=== PATIENT | male | born 1985 | race Caucasian/White ===

== ENCOUNTER 2016-07-15 07:40 | Outpatient (CLI) | payer OTHER ==
[2016-07-15 08:31] LABS: BASOPHILS # (AUTO) 0.1 K/uL (0.0-0.2); BASOPHILS % (AUTO) 1.1 % (0.0-2.0); EOSINOPHILS # (AUTO) 0.4 K/uL (0.0-0.4); EOSINOPHILS % (AUTO) 5.8 % (0.0-4.0); HEMATOCRIT 48.3 % (36-54); HEMOGLOBIN 16.1 g/dL (14.0-18.0); LYMPHOCYTES # (AUTO) 2.6 K/uL (1.0-5.5); MEAN CORPUSCULAR HEMOGLOBIN 29 pg (27-31); MEAN CORPUSCULAR HGB CONC 33 % (32-36); MEAN CORPUSCULAR VOLUME 88 fL (79.0-98.0); MONOCYTES # (AUTO) 0.8 K/uL (0.0-1.0); MONOCYTES % (AUTO) 10.6 % (1.7-9.3); NEUTROPHILS # (AUTO) 3.4 K/uL (1.8-7.7); NEUTROPHILS % (AUTO) 47.5 % (40.0-70.0); PLATELET COUNT (AUTO) 183 K/uL (130-430); RED CELL DISTRIBUTION WIDTH 12.1 % (9.0-15.0); WHITE BLOOD COUNT (AUTO) 7.3 K/uL (4.8-10.8)
[2016-07-15] MEDS ORDERED: BARIUM SULFATE 135 ML SUSP.RECON (E-Z-HD) PO ONE (08:38)
[2016-07-15 08:52] LABS: ALBUMIN 4.7 g/dL (3.4-4.8); CREATININE 1.14 mg/dL (0.55-1.30); FREE T4 (FREE THYROXINE) 1.2 ng/dL (0.6-1.6); POTASSIUM 3.6 mmol/L (3.5-5.1); THYROID STIMULATING HORMONE 1.42 uIu/mL (0.34-4.82); TOTAL BILIRUBIN 0.6 mg/dL (0.0-1.0); TOTAL PROTEIN, SERUM 7.6 g/dL (6.4-8.3)
[2016-07-15 09:46] LABS: ERYTHROCYTE SEDIMENTATION RATE 2 MM/HR (0-15)
[2016-07-16 12:20] LABS: HEMOGLOBIN A1C 5.4 % (4.8-5.6)
== END 2016-07-15 19:43 | disposition home or self-care (01) ==
LOC: SLB 07:40
PROVIDERS: ATTEND Internal Medicine
DX: K21.9 Gastro-esophageal reflux disease without esophagitis (principal); R07.9 Chest pain, unspecified; R13.10 Dysphagia, unspecified; E04.9 Nontoxic goiter, unspecified
CPT/HCPCS: 36415; 71020-TC; 74220-TC; 76536-TC; 80053; 80061; 82306; 82607; 83036; 83735-TC; 84439; 84443-TC; 85025; 85651-TC

== ENCOUNTER 2016-07-17 12:40 | Outpatient (CLI) | payer OTHER | END 2016-07-17 19:02 | disposition home or self-care (01) | LOC: SCA 12:40 | PROVIDERS: ATTEND Internal Medicine | DX: I49.9 Cardiac arrhythmia, unspecified (principal) | CPT/HCPCS: 93005; 93306 ==

== ENCOUNTER → 2016-12-17 | Outpatient (CLI) | payer OTHER ==
[2016-12-17 08:50] LABS: BASOPHILS # (AUTO) 0.1 K/uL (0.0-0.2); BASOPHILS % (AUTO) 0.7 % (0.0-2.0); EOSINOPHILS # (AUTO) 0.2 K/uL (0.0-0.4); EOSINOPHILS % (AUTO) 2.8 % (0.0-4.0); HEMATOCRIT 46.4 % (36-54); HEMOGLOBIN 15.4 g/dL (14.0-18.0); LYMPHOCYTES # (AUTO) 2.2 K/uL (1.0-5.5); LYMPHOCYTES % (AUTO) 30.3 % (20.5-51.5); MEAN CORPUSCULAR HEMOGLOBIN 29 pg (27-31); MEAN CORPUSCULAR HGB CONC 33 % (32-36); MEAN CORPUSCULAR VOLUME 87 fL (79.0-98.0); MONOCYTES # (AUTO) 0.6 K/uL (0.0-1.0); MONOCYTES % (AUTO) 8.2 % (1.7-9.3); NEUTROPHILS # (AUTO) 4.1 K/uL (1.8-7.7); PLATELET COUNT (AUTO) 207 K/uL (130-430); RED BLOOD CELL COUNT(AUTO) 5.31 MIL/uL (4.2-6.2); RED CELL DISTRIBUTION WIDTH 11.7 % (9.0-15.0); WHITE BLOOD COUNT (AUTO) 7.2 K/uL (4.8-10.8)
[2016-12-17 09:13] LABS: ALBUMIN 4.7 g/dL (3.4-4.8); CALCIUM 8.8 mg/dL (8.4-11.0); CREATININE 1.25 mg/dL (0.55-1.30); POTASSIUM 3.9 mmol/L (3.5-5.1); THYROID STIMULATING HORMONE 1.72 uIu/mL (0.34-4.82); TOTAL BILIRUBIN 0.8 mg/dL (0.0-1.0)
[2016-12-19 00:16] LABS: HEMOGLOBIN A1C 4.9 % (4.8-5.6)
== END | disposition home or self-care (01) ==
LOC: SLB 08:21
PROVIDERS: ATTEND Internal Medicine
DX: E78.5 Hyperlipidemia, unspecified (principal); E55.9 Vitamin D deficiency, unspecified
CPT/HCPCS: 36415; 80053; 82306; 83036; 84443-TC; 85025